=== PATIENT | female | born 1955 | race Caucasian/White ===

== ENCOUNTER → 2018-06-30 | Outpatient (CLI) | payer BC ==
[~2018-06-30] MED LIST: CALCIUM 500 +1 EAC5 PO; CIPRO500 MG PO; ESTRADIOL 1 MG T1 M1 PO; FOLIC ACID 40400 MCG PO; HUMIRA40 MG/0.1 SQ; HYDROCODONE-AP1 EAC6 PO; KEFLEX500 MG PO; LOVAZA1000 MG PO; METHOTREXATE 22.5 MG PO; ONDANSETRON HCL4 M2 PO; PHENAZOPYRIDIN200 M2 PO; PHENERGAN 25 MG25 M1 PO; PRILOSEC20 MG PO; UNICOMPLEX M TA1 TA1 PO; VITAMIN C1000 M1 PO
== END ==
LOC: M.RAD 14:34
DX: Z12.31 Encounter for screening mammogram for malignant neoplasm of breast (principal)

== ENCOUNTER → 2019-06-27 | Outpatient (CLI) | payer BC | LOC: M.RAD 14:28 | DX: Z12.31 Encounter for screening mammogram for malignant neoplasm of breast (principal) ==

== ENCOUNTER → 2020-07-02 | Outpatient (CLI) | payer OTHER | LOC: M.RAD 14:20 | PROVIDERS: ATTEND Family Medicine | DX: Z12.31 Encounter for screening mammogram for malignant neoplasm of breast (principal); N63.0 Unspecified lump in unspecified breast; N64.89 Other specified disorders of breast ==

== ENCOUNTER 2020-09-07 10:59 | Emergency (ER) | payer OTHER ==
[~2020-09-07] VITALS: Ht 162.6 cm; Wt 86.2 kg
[2020-09-07 11:18] LABS: ABSOLUTE LYMPHOCYTES 1.2 thou/uL (0.8-5.3); ABSOLUTE MONOCYTES 0.3 thou/uL (0.0-1.2); ABSOLUTE NEUTROPHILS 3.1 thou/uL (1.6-8.1); EOSINOPHILS 0.2 %; HEMATOCRIT 38.1 % (37.0-47.0); HEMOGLOBIN 12.7 gm/dL (12.0-15.0); LYMPHOCYTES 25.9 %; MCH 33.4 pg (26.0-34.0); MCHC 33.4 g/dL (28.0-37.0); MCV 99.9 fL (80.0-100.0); MONOCYTES 5.7 %; MPV 7.4 fl. (7.2-11.1); NUCLEATED RBCS 0 /100WBC; PLATELET COUNT* 232 thou/uL (150-400); POLYS 67.2 %; RBC 3.81 mil/uL (4.20-5.00); RDW-CV 13.2 % (10.5-14.5); WBC 4.6 thou/uL (4.0-11.0)
[2020-09-07 11:33] LABS: CALCIUM 7.6 mg/dL (8.5-10.1); CREATININE 0.9 mg/dL (0.6-1.3); POTASSIUM 3.8 mmol/L (3.5-5.1)
[2020-09-07 11:37] LABS: URINE BILIRUBIN NEGATIVE (Negative); URINE BLOOD 1+ (Negative); URINE CLARITY CLEAR; URINE COLOR YELLOW; URINE GLUCOSE-RANDOM NEGATIVE (Negative); URINE KETONES NEGATIVE (Negative); URINE NITRITE-REFLEX NEGATIVE (Negative); URINE PROTEIN NEGATIVE (Negative); URINE SPECIFIC GRAVITY 1.015 (1.005-1.030); URINE UROBILINOGEN 0.2 E.U./dl (0.2-1.0)
[2020-09-07 11:38] LABS: ALBUMIN 3.4 g/dL (3.4-5.0); TOTAL BILIRUBIN 0.2 mg/dL (<0.1-1.0); TOTAL PROTEIN 7.2 g/dL (6.4-8.2)
[2020-09-07 11:39] LABS: URINE LEUKOCYTES-REFLEX 2+ (Negative)
[2020-09-07 11:48] LABS: SQUAMOUS >10 Many /LPF (0-3)
[2020-09-07 11:49] LABS: BACTERIA-REFLEX >30 Many /HPF (None Seen); CASTS None Seen /LPF (None Seen); CRYSTALS None Seen /LPF (None Seen); MUCUS 0-3 Light strn/LPF (None Seen); URINE RBC 0-2 Rare /HPF (0-2); URINE WBC-REFLEX 6-15 Few /HPF (0-5)
[2020-09-07] MEDS ORDERED: ONDANSETRON ODT4 MG PO (11:59)
[2020-09-07] MEDS ORDERED: KEFLEX500 M1 PO (11:59)
[2020-09-07] MEDS ORDERED: APAP W/CODEINE1 TA2 PO (11:59)
[2020-09-07 12:32] VITALS: BP 122/67
== END 2020-09-07 12:33 | disposition home or self-care (01) ==
LOC: M.ERS 10:59
PROVIDERS: Physician Assistant
DX: N39.0 Urinary tract infection, site not specified (principal); U07.1 COVID-19; E83.51 Hypocalcemia; Z88.2 Allergy status to sulfonamides; Z90.711 Acquired absence of uterus with remaining cervical stump; M06.9 Rheumatoid arthritis, unspecified

== ENCOUNTER 2020-09-10 12:21 | Emergency (ER) | payer OTHER ==
[~2020-09-10] VITALS: Ht 167.6 cm; Wt 86.2 kg
[~2020-09-10 12:21] MED LIST changes: +APAP W/CODEINE1 TA2 PO; +KEFLEX500 M1 PO; +ONDANSETRON ODT4 MG PO
[2020-09-10 13:03] LABS: URINE BILIRUBIN NEGATIVE (Negative); URINE BLOOD TRACE (Negative); URINE CLARITY CLEAR; URINE COLOR YELLOW; URINE GLUCOSE-RANDOM NEGATIVE (Negative); URINE KETONES NEGATIVE (Negative); URINE LEUKOCYTES-REFLEX 1+ (Negative); URINE NITRITE-REFLEX NEGATIVE (Negative); URINE PROTEIN NEGATIVE (Negative); URINE SPECIFIC GRAVITY 1.015 (1.005-1.030)
[2020-09-10 13:10] LABS: SQUAMOUS >10 Many /LPF (0-3); URINE RBC None Seen /HPF (0-2); URINE WBC-REFLEX 6-15 Few /HPF (0-5)
[2020-09-10 13:11] LABS: CASTS None Seen /LPF (None Seen); CRYSTALS None Seen /LPF (None Seen); MUCUS None Seen strn/LPF (None Seen)
[2020-09-10 13:44] LABS: ABSOLUTE LYMPHOCYTES 0.8 thou/uL (0.8-5.3); ABSOLUTE MONOCYTES 0.5 thou/uL (0.0-1.2); ABSOLUTE NEUTROPHILS 4.1 thou/uL (1.6-8.1); BASOPHILS 0.2 %; EOSINOPHILS 0.1 %; HEMATOCRIT 35.6 % (37.0-47.0); HEMOGLOBIN 11.8 gm/dL (12.0-15.0); LYMPHOCYTES 14.9 %; MCHC 33.2 g/dL (28.0-37.0); MCV 99.5 fL (80.0-100.0); MONOCYTES 8.7 %; MPV 7.4 fl. (7.2-11.1); NUCLEATED RBCS 0 /100WBC; PLATELET COUNT* 251 thou/uL (150-400); POLYS 76.1 %; RBC 3.58 mil/uL (4.20-5.00); RDW-CV 13.3 % (10.5-14.5); WBC 5.4 thou/uL (4.0-11.0)
[2020-09-10 14:16] LABS: CREATININE 0.9 mg/dL (0.6-1.3); POTASSIUM 3.5 mmol/L (3.5-5.1)
[2020-09-10 14:31] LABS: ALBUMIN 3.1 g/dL (3.4-5.0); TOTAL BILIRUBIN 0.3 mg/dL (<0.1-1.0); TOTAL PROTEIN 6.9 g/dL (6.4-8.2)
[2020-09-10] MEDS ORDERED: NORCO5 PO (14:51)
[2020-09-10 15:05] VITALS: BP 128/57
[2020-09-10] MEDS ORDERED: HUMIRA40 MG/0.4 SUBQ (15:10)
--- NOTE | 2020-09-10 16:23 | EKG ---
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: YASMIN : 1955 Requested By: Bessy Kilgore Order Number: [id number] MD: José Miguel Lezama Measurements Intervals [place] Rate: 96 P: 54 IA: 157 QRS: -41 QRSD: 82 T: 10 QT: 376 QTc: 476 Interpretive Statements Sinus rhythm Left axis deviation Borderline T abnormalities, anterior leads Borderline prolonged QT interval No previous ECG available for comparison Electronically Signed On 09-10-2020 16:23:26 [employer] by José Miguel Lezama [email or web address] <ELECTRONICALLY SIGNED> By: José Miguel Lezama MD, [facility] 09/10/20 1623 1341 1341 José Miguel Lezama MD, [facility] /EPI
== END 2020-09-10 15:06 | disposition home or self-care (01) ==
LOC: M.ERS 12:21
PROVIDERS: Nurse Practitioner Family
DX: H92.01 Otalgia, right ear (principal); R35.0 Frequency of micturition; R74.8 Abnormal levels of other serum enzymes; Z20.822 Contact with and (suspected) exposure to COVID-19; M06.9 Rheumatoid arthritis, unspecified; Z88.2 Allergy status to sulfonamides; Z90.711 Acquired absence of uterus with remaining cervical stump

== ENCOUNTER → 2021-07-03 | Outpatient (CLI) | payer OTHER ==
[~2021-07-03] MED LIST changes: +HUMIRA40 MG/0.4 SUBQ; +NORCO5 PO
== END ==
LOC: M.RAD 14:26
PROVIDERS: ATTEND Family Medicine
DX: Z12.31 Encounter for screening mammogram for malignant neoplasm of breast (principal)